=== PATIENT | male | born 1970 | race Caucasian/White ===

== ENCOUNTER → 2024-10-10 | Outpatient (CLI) | payer OTHER ==
[~2024-10-10] MED LIST: BENZTROPINE MESY1 MG PO; BENZTROPINE MESY2 M1 PO; DIVALPROEX ER PO; DIVALPROEX SOD500 M1 PO; LAMOTRIGINE25 M1 PO; LORSARTAN PO; NITROSTAT0.4 MG SL; ROBAXIN-750750 MG PO; ULTRAM50 MG PO; ZIPRASIDONE HCL40 MG PO; ZIPRASIDONE PO; ZOFRAN ODT4 MG SL
== END | disposition home or self-care (01) ==
LOC: MRI 01:58
PROVIDERS: ATTEND Psychiatry & Neurology Neurology
DX: M47.813 Spondylosis without myelopathy or radiculopathy, cervicothoracic region (principal); G44.86 Cervicogenic headache; M25.78 Osteophyte, vertebrae; E04.1 Nontoxic single thyroid nodule; M48.03 Spinal stenosis, cervicothoracic region

== ENCOUNTER → 2025-02-01 | Outpatient (CLI) | payer MEDICAID | END | disposition home or self-care (01) | LOC: US 07:02 | PROVIDERS: ATTEND Nurse Practitioner | DX: E04.1 Nontoxic single thyroid nodule (principal) ==

== ENCOUNTER → 2025-02-08 | Outpatient (CLI) | payer MEDICAID ==
[2025-02-14 09:55] LABS: DIAGNOSIS SEE REFERENCE REPORT
== END | disposition home or self-care (01) ==
LOC: EDSTATUS 13:00 → SDC 13:00
PROVIDERS: Radiology Diagnostic Radiology; ATTEND Nurse Practitioner
DX: E04.1 Nontoxic single thyroid nodule (principal)

== ENCOUNTER → 2025-07-10 | Outpatient (CLI) | payer MEDICAID | LOC: RAD 07:10 | PROVIDERS: ATTEND Physician Assistant | DX: M50.123 Cervical disc disorder at C6-C7 level with radiculopathy (principal); M48.02 Spinal stenosis, cervical region; M43.22 Fusion of spine, cervical region; M50.20 Other cervical disc displacement, unspecified cervical region ==

== ENCOUNTER → 2025-09-03 | Outpatient (CLI) | payer MEDICAID | END | disposition home or self-care (01) | LOC: RAD 10:08 | PROVIDERS: ATTEND Physician Assistant | DX: M50.123 Cervical disc disorder at C6-C7 level with radiculopathy (principal); M50.20 Other cervical disc displacement, unspecified cervical region; Z98.1 Arthrodesis status ==